=== PATIENT | female | born 1990 | race Caucasian/White ===

== ENCOUNTER → 2021-01-14 14:07 | Outpatient (CLI) | payer OTHER, MEDICAID, SELFPAY ==
--- NOTE | 2021-01-14 14:09 | DI.US.S_ITS ---
PROCEDURE: US OB >= 14 WEEKS FETUS INDICATIONS: 20wk Anatomy Scan OUTSIDE/PRIOR DATING DATA: First dating scan (date and location): 01/14/2021. Estimated date of delivery (RAISA) from first dating scan: 05/14/2021. The calculations are made using the ultrasound RAISA of 05/14/2021. TECHNIQUE: Real-time scanning was performed of the fetus, with image documentation and biometric measurements. Endovaginal scanning: No COMPARISON: [facility], US, US OB < 14 WEEKS, 09/30/2020, 16:25. FINDINGS: General: A single living intrauterine gestation is present. Presentation: Vertex. Placenta: Placental position is posterior , without previa. Amniotic fluid index: 12.7 cm, normal range is 5-24 cm. heart rate: 144 beats per minute. Maternal cervical canal: 3.2 cm long. Normal lower limit is 2.5 cm. biometrics: Biparietal diameter: 23 weeks 0 days Head circumference: 22 weeks 5 days Abdominal circumference: 22 weeks 1 day Femur length: 23 weeks 2 days Clinically estimated gestational age: N/a Composite gestational age from present scan: 22 weeks 6 days Estimated weight and percentile: N/a Anatomic survey: Neuro: Ventricles are non-dilated at less than 10 mm. Cisterna magna is normal at 3-11 mm. Cerebellum is normal in size and morphology. Nuchal skin fold: Normal at less than 6 mm between 14-21 weeks gestational age. Face: Suboptimally seen. Spine: No evidence for spina bifida. Heart: Suboptimally seen. Diaphragm: Diaphragm is intact. Stomach: Left-sided stomach is present. Kidneys: No hydronephrosis. Normal is less than 5 mm in 2nd trimester, less than 7 mm in 3rd trimester. Cord: Not well seen. Bladder: Normal in size. Extremities: All 4 extremities identified. IMPRESSION: 1. 22 week 6 day single living IUP corresponding to ultrasound RAISA of 05/14/2021. 2. Limited anatomic survey as above. Follow-up recommended. We strive to produce accurate, complete, and clear reports of imaging services. To assist us in improving patient care, this report was composed using standard report templates and voice recognition software. Therefore, it may contain abnormal punctuation, insertions and/or omissions. Occasional wrong-word or sound-alike substitutions may occur. Though we review the report and make efforts to correct it, we do recommend that the report be read carefully in proper context to recognize any text inaccuracies. Dictated by: Landen RYDER Interpreted: Anton Moon MD on 01/14/2021 at 16:16 Transcribed by: MAX on 01/14/2021 at 16:19 Approved by: Ivana Stout M.D. on 01/20/2021 at 14:39
== END ==
PROVIDERS: Referring Provider Obstetrics & Gynecology; Visit Provider Obstetrics & Gynecology
DX: Z34.82 Encounter for supervision of other normal pregnancy, second trimester (principal); Z3A.22 22 weeks gestation of pregnancy
CPT/HCPCS: 76811

== ENCOUNTER → 2021-02-12 07:50 | Outpatient (CLI) | payer OTHER, MEDICAID, SELFPAY ==
[2021-02-12 10:14] LABS: Hematocrit 32.9 % (36-46); Hemoglobin 11.3 g/dL (12.0-16.0)
[2021-02-12 10:15] LABS: GTT (PREG) 1 Hour PP 50gm Dose 124 mg/dL (76-139)
== END ==
PROVIDERS: Referring Provider Obstetrics & Gynecology; Visit Provider Obstetrics & Gynecology
DX: Z34.82 Encounter for supervision of other normal pregnancy, second trimester (principal); Z3A.25 25 weeks gestation of pregnancy
CPT/HCPCS: 36415; 82950; 85014; 85018

== ENCOUNTER → 2021-02-16 07:46 | Outpatient (CLI) | payer OTHER, MEDICAID, SELFPAY ==
--- NOTE | 2021-02-16 07:47 | DI.US.S_ITS ---
PROCEDURE: US OB FOLLOW UP INDICATIONS: FOLLOW UP ANATOMY OUTSIDE/PRIOR DATING DATA: Last menstrual period (LMP): Unknown. LMP-based estimated date of delivery (RAISA): Unknown. First dating scan (date and location): 01/14/2021 Estimated date of delivery (RAISA) from first dating scan: 05/14/2021. The calculations are made using the study generated RAISA of 05/14/2021. TECHNIQUE: Real-time scanning was performed of the fetus, with image documentation. COMPARISON: None. FINDINGS: A single living intrauterine gestation is present. Presentation: Vertex Placenta: Placental position is posterior, without gross previa. Amniotic fluid index: 14.8 cm, normal range is 5-24 cm. Single deepest vertical pocket is 4.8 cm. heart rate: 132 beats per minute. Maternal cervical canal: Not well seen. Estimated gestational age from initial scan: 27 weeks, 4 days. facial profile/lips/orbits are visualized and are within normal limits. Four-chamber heart and left ventricular outflow tract is visualized and is within normal limits. Right ventricular outflow tract is not well seen. cord insertion is visualized and is within normal limits. Placenta cord insertion is not well seen. Bilateral lower extremities are within normal limits. IMPRESSION: 1. Single live intrauterine with fetus in vertex presentation. heart rate is 132 beats per minute. Normal amount of amniotic fluid. 2. facial profile, four-chamber heart, left ventricular outflow tract and cord insertion are visualized and are within normal limits. Bilateral lower extremities are visualized and are within normal limits. 3. Placental cord insertion and right ventricular outflow tracts are not well visualized due to position. Dictated by: Jeremy Au M.D. on 02/16/2021 at 12:02 Approved by: Jeremy Au M.D. on 02/16/2021 at 12:05
== END ==
PROVIDERS: Family Provider Obstetrics & Gynecology; Referring Provider Obstetrics & Gynecology; Visit Provider Obstetrics & Gynecology
DX: Z36.2 Encounter for other antenatal screening follow-up (principal); Z3A.27 27 weeks gestation of pregnancy
CPT/HCPCS: 76816

== ENCOUNTER 2021-02-16 17:53 | Emergency (ER) | payer OTHER, MEDICAID, SELFPAY ==
[2021-02-16 18:28] VITALS: BP 115/60; PULSE 97; RESP 18; TEMP 36.7; O2SAT 98; BMI 39.9
--- NOTE | 2021-02-16 21:32 | PC.NURSE ---
pT 27WKS PREG. NO HX OF PAIN OF THIS TIME. NO HX OF KIDNEY STONES, NO COMPLAINTS. PAIN STARTS IN R FLANK AND RADIATES TO L FLANK AND BILAT LOWER EXTREMITIES
[2021-02-16 21:33] VITALS: BP 136/82; PULSE 91; RESP 20; O2SAT 100
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
[2021-02-16 22:20] LABS: RBC Urine 1-5/HPF (0-5/HPF)
[2021-02-16 22:21] LABS: Bacteria Urine Few (2-10); Culture Indicated Urine Cult Not Indicated; Squamous Epithelial Cell Urine 1-5 /HPF (0-5/HPF); WBC Urine 0-1/HPF (0-5/HPF)
[2021-02-16 22:31] VITALS: BP 122/73; PULSE 90; RESP 16; O2SAT 100
== END 2021-02-16 22:43 | disposition home or self-care (01) ==
PROVIDERS: Emergency Provider Emergency Medicine; Family Provider Obstetrics & Gynecology
DX: O26.892 Other specified pregnancy related conditions, second trimester (principal); M54.50 Low back pain, unspecified; Z3A.27 27 weeks gestation of pregnancy; Z36.2 Encounter for other antenatal screening follow-up
CPT/HCPCS: 76816; 81003; 81015; 99282

== ENCOUNTER 2021-03-10 13:10 | Emergency (ER) | payer OTHER, MEDICAID, SELFPAY ==
[2021-03-10 13:22] VITALS: BP 127/73; PULSE 102; RESP 22; TEMP 36.4; O2SAT 98; BMI 39.1
[2021-03-10 13:51] LABS: COVID19 -Nasal RAPID POSITIVE (Negative)
== END 2021-03-10 14:50 | disposition home or self-care (01) ==
PROVIDERS: Emergency Provider Emergency Medicine; Family Provider Obstetrics & Gynecology
DX: O98.513 Other viral diseases complicating pregnancy, third trimester (principal); U07.1 COVID-19; Z3A.30 30 weeks gestation of pregnancy; O47.03 False labor before 37 completed weeks of gestation, third trimester
CPT/HCPCS: 59025; 87635; 99281; C9803; G0378; G0379

== ENCOUNTER 2021-03-10 14:47 | Observation (INO) | payer OTHER, MEDICAID, SELFPAY ==
[2021-03-10 15:28] VITALS: BP 140/59; PULSE 100; RESP 20; TEMP 36.4
== END 2021-03-10 15:39 | disposition home or self-care (01) ==
PROVIDERS: Admitting Provider Obstetrics & Gynecology; Family Provider Obstetrics & Gynecology; Referring Provider Obstetrics & Gynecology; Visit Provider Obstetrics & Gynecology
DX: O47.03 False labor before 37 completed weeks of gestation, third trimester (principal); O98.513 Other viral diseases complicating pregnancy, third trimester; U07.1 COVID-19; Z3A.30 30 weeks gestation of pregnancy
CPT/HCPCS: 59025; G0378; G0379

== ENCOUNTER → 2021-04-02 15:51 | Outpatient (CLI) | payer OTHER, MEDICAID, SELFPAY ==
--- NOTE | 2021-04-02 15:53 | DI.US.S_ITS ---
PROCEDURE: US OB LIMITED INDICATIONS: F/U ANATOMY SCAN OUTSIDE/PRIOR DATING DATA: Last menstrual period (LMP): Unknown. First dating scan (date): January 14, 2021. Estimated date of delivery (RAISA) from first dating scan: May 14, 2021. TECHNIQUE: Real-time scanning was performed of the fetus, with image documentation. COMPARISON: [facility], OB FOLLOW UP, 02/16/2021, 8:03. FINDINGS: A single living intrauterine gestation is present. Presentation: Cephalic. Placenta: Placental position is posterior, without previa. Amniotic fluid index: 16.8 cm, normal range is 5-24 cm. heart rate: 145 beats per minute. Maternal cervical canal: Not well seen. anatomy: Right outflow tract: Not well seen. Placenta cord insertion: Not well seen. IMPRESSION: Live single intrauterine gestation as detailed above. Dictated by: Anton Moon M.D. on 04/02/2021 at 16:54 Approved by: Anton Moon M.D. on 04/02/2021 at 16:56
== END ==
PROVIDERS: Family Provider Obstetrics & Gynecology; Referring Provider Obstetrics & Gynecology; Visit Provider Obstetrics & Gynecology
DX: Z34.83 Encounter for supervision of other normal pregnancy, third trimester (principal); Z3A.34 34 weeks gestation of pregnancy
CPT/HCPCS: 76815

== ENCOUNTER 2021-04-14 19:26 | Observation (INO) | payer OTHER, MEDICAID, SELFPAY ==
[2021-04-14 21:07] LABS: Appearance Urine UA CLEAR; Bilirubin Urine UA NEGATIVE (NEGATIVE); Color Urine UA YELLOW; Glucose Urine UA NEGATIVE (Negative); Ketones Urine UA 3+ (NEGATIVE); Leukocyte Esterase Urine UA NEGATIVE (NEGATIVE); Nitrite Urine UA NEGATIVE (Negative); Occult Blood Urine UA TRACE-LYSED (Negative); Protein Urine UA NEGATIVE (Negative); Urobilinogen Urine UA 0.2 E.U./dL (0.2)
[2021-04-14 21:27] LABS: Bacteria Urine Occasional (0-1); Culture Indicated Urine Cult Not Indicated; RBC Urine 0-1/HPF (0-5/HPF); Squamous Epithelial Cell Urine 10-30 /HPF (0-5/HPF); WBC Urine 0-1/HPF (0-5/HPF)
[2021-04-14] MEDS: NIFEdipine 10 MG CAPSULE PO ×2 (21:44→22:07)
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
== END 2021-04-14 22:45 | disposition home or self-care (01) ==
LOC: LABOR 19:29
PROVIDERS: Admitting Provider Specialist; Family Provider Obstetrics & Gynecology; Referring Provider Specialist; Visit Provider Specialist
DX: O47.03 False labor before 37 completed weeks of gestation, third trimester (principal); Z3A.35 35 weeks gestation of pregnancy
CPT/HCPCS: 59025; 59050; 81001; G0378; G0379

== ENCOUNTER → 2021-04-22 08:07 | Outpatient (CLI) | payer OTHER, MEDICAID, SELFPAY ==
[2021-04-23 14:55] LABS: Strep Grp B PCR NEG for Grp B Strep
== END ==
PROVIDERS: Family Provider Obstetrics & Gynecology; Visit Provider Obstetrics & Gynecology
DX: Z34.83 Encounter for supervision of other normal pregnancy, third trimester (principal); Z3A.36 36 weeks gestation of pregnancy
CPT/HCPCS: 87653

== ENCOUNTER 2021-05-20 08:36 | Outpatient (CLI) | payer OTHER, MEDICAID, SELFPAY | END 2021-05-20 09:14 | disposition home or self-care (01) | LOC: OB 05-21 06:56 | PROVIDERS: Family Provider Obstetrics & Gynecology; PCP Family Medicine; Referring Provider Obstetrics & Gynecology; Visit Provider Obstetrics & Gynecology | DX: O48.0 Post-term pregnancy (principal); O36.8130 Decreased fetal movements, third trimester, not applicable or unspecified; Z3A.40 40 weeks gestation of pregnancy | CPT/HCPCS: 59025; G0378; G0379 ==

== ENCOUNTER 2021-05-21 20:02 | Inpatient (IN) | payer OTHER, MEDICAID, SELFPAY ==
[2021-05-21 21:17] VITALS: BP 127/77
[2021-05-21 21:53] LABS: Add Manual Diff / Slide Review NO; Basophils Absolute Auto 0 /uL (0-100); Basophils Percent Auto 0.4 % (0-2); Eosinophils Absolute Auto 100 /uL (0-450); Eosinophils Percent Auto 0.4 % (2-4); Hematocrit 33.7 % (36-46); Hemoglobin 11.4 g/dL (12.0-16.0); Lymphocytes Absolute Auto 1600 /uL (1100-4500); Lymphocytes Percent Auto 12.8 % (25-40); Mean Corpuscular HGB Conc 33.8 % (30-36); Mean Corpuscular Hemoglobin 27.9 PG (26-34); Mean Corpuscular Volume 82.4 fL (80-100); Monocytes Absolute Auto 1100 /uL (0-900); Monocytes Percent Auto 9.1 % (3-14); Neutrophils Absolute Auto 9800 /uL (1500-7000); Neutrophils Percent Auto 77.3 % (50-75); Platelet Count 272 X10^3/uL (150-400); Red Blood Cell Count 4.09 X10^6/uL (4.0-5.2); Red Cell Distribution Width 13.6 % (11.6-14.8); White Blood Cell Count 12.6 X10^3/uL (4.5-11.0)
[2021-05-21 22:14] LABS: COVID19 -Nasal RAPID Negative (Negative)
[2021-05-21] MEDS: miSOPROStoL 25 MCG TABLET 50 MCG PO (22:22)
[2021-05-22] MEDS: LACTATED RINGERS 1,000 ML 100 ML IV ×2 (09:59→14:04)
[2021-05-22] MEDS: OXYTOCIN PREMIX 30 UNIT/500 ML PLAST..BAG IV (10:04)
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
[2021-05-22] MEDS: fentaNYL 100 MCG/2 ML INJ 50 MCG IV (14:00)
[2021-05-22] MEDS: FENT 2MCG/ML BUPIV 0.125% EPI 200 MCG/100 ML PLAST..BAG 12 MCG EPIDURAL (14:01)
--- NOTE | 2021-05-22 14:30 | PM.AN.REGBLK ---
Regional Block Pre-procedure Procedure: Continuous Lumbar Epidural for L&D Attending OB provider: Slick Velasquez PMH/ROS narrative: , previous epidurals without incident. PMHx of anxiety and obesity. Hx: No personal or family history of anesthesia problems. PSH/Anesthesia history narrative: epidurals without issue Exam narrative: RRR, CTAB ASA Class: III Labs: Hct 33.7 % (36-46) L 05/21/21 21:30 Plt Count 272 X10^3/uL (150-400) 05/21/21 21:30 Medications: Current Medications Generic Name Dose Route Start Last Admin Trade Name Freq PRN Reason Stop Dose Admin Acetaminophen 650 mg 05/21/21 22:17 Acetaminophen 325 Mg Tablet PO Q6HR PRN Fever/Mild Pain (1-3) Calcium Carbonate 1,000 mg 05/21/21 22:17 Calcium Carbonate 500 Mg Tab PO Q4HR PRN Dyspepsia Carboprost Tromethamine 250 mcg 05/21/21 20:11 Carboprost 250 Mcg/Ml Ampul IM Q90M PRN Bleeding Fentanyl 50 mcg 05/21/21 20:11 05/22/21 14:00 Fentanyl 100 Mcg/2 Ml Inj IV 50 mcg Q1H PRN Administration Pain, Moderate (4-6) Lactated Ringer's 1,000 mls @ 100 mls/hr 05/21/21 20:15 05/22/21 14:04 Lactated Ringers IV 100 mls/hr CONT MARY LOU Administration Tranexamic Acid 1,000 mg/ 100 mls @ 200 mls/hr 05/21/21 20:11 Sodium Chloride IV NOW PRN Bleeding Oxytocin/Lactated Ringer's 30 unit in 500 mls @ 200 mls/hr 05/21/21 20:11 Oxytocin Premix IV CONT PRN Bleeding Protocol Oxytocin/Lactated Ringer's 30 unit in 500 mls @ 3 mls/hr 05/22/21 10:00 05/22/21 10:04 Oxytocin Premix IV 3 milliunit/min TITRATE MARY LOU 3 mls/hr Administration Protocol 3 MILLIUNIT/MIN Lactated Ringer's 1,000 mls @ 100 mls/hr 05/22/21 13:45 Lactated Ringers IV CONT MARY LOU FENT 2MCG/ML BUPIV 0.125% EPI 200 mcg in 100 mls @ 12 mls/hr 05/22/21 13:45 05/22/21 14:01 Fentanyl/Bupiv/Ns 2mcg/Ml - 0.125% EPIDURAL 12 mls/hr CONT MARY LOU Administration Methylergonovine Maleate 0.2 mg 05/21/21 20:11 Methylergonovine 0.2 Mg Tablet PO Q6HR PRN Heavy Bleeding Methylergonovine Maleate 0.2 mg 05/21/21 20:11 Methylergonovine 0.2 Mg/Ml Vial IM NOW PRN Bleeding Misoprostol 50 mcg 05/21/21 20:15 05/21/21 22:22 Misoprostol 25 Mcg Tablet PO 50 mcg Q6H MARY LOU Administration Misoprostol 800 mcg 05/21/21 20:11 Misoprostol 200 Mcg Tablet KS NOW PRN Bleeding Misoprostol 1,000 mcg 05/21/21 20:11 Misoprostol 200 Mcg Tablet KS NOW PRN Bleeding Misoprostol 400 mcg 05/21/21 20:11 Misoprostol 200 Mcg Tablet SL NOW PRN Bleeding Naloxone HCl 0.2 mg 05/21/21 20:11 Naloxone 0.4 Mg/Ml Vial IV Q2MIN PRN Opiate Reversal Oxytocin 10 unit 05/21/21 20:11 Oxytocin 10 Unit/Ml Vial IM NOW PRN Bleeding Zolpidem Tartrate 5 mg 05/21/21 22:17 Zolpidem 5 Mg Tablet PO BEDTIME PRN Sleep Allergies: Allergies Allergy/AdvReac Type Severity Reaction Status Date / Time No Known Drug Allergies Allergy Verified 05/20/21 07:59 Procedure Insertion date: 05/22/21 Insertion time: 14:09 Prep/Local: betadine x3 (chloroprep) and 1% lidocaine Interspace: L2-3 Patient position: sitting Needle: 18 gauge Suleman (with 27G pencil point needle-through needle for IT dose) Loss of resistance with: saline (with air bubble) JANA at (cm): 7 Catheter placed at SKIN (cm): 12 Catheter in SPACE (cm): 5 Insertion: Yes CSF, No Blood, No Paresthesia with insertion, No Paresthesia with injection and No Test dose reaction Initial Medications TEST DOSE time: 14:09 TEST DOSE: 1.5% lidocaine with epinephrine 1:200k (mL): 5 (3mL initial test dose, 2mL as part of first bolus) BOLUS DOSE time: 14:10 BOLUS DOSE (mL): 2 BOLUS DOSE med: other (10mcg fentanyl intrathecally, 90mcg fentanyl via epidural catheter) Infusion INFUSION: 0.0625% bupivacaine and with fentanyl 2 mcg/mL Initial rate (mL/hr): 12 (with bolus of 5mL Q15min lockout) Post-procedure Anesthesia time START: 13:55 Anesthesia time END: 16:01 Post-procedure Anesthesia Assessment: No Anesthesia complications
[2021-05-22] MEDS: IBUPROFEN 600 MG TABLET PO (18:20)
[2021-05-23] MEDS: IBUPROFEN 600 MG TABLET PO ×2 (00:07→06:03)
[2021-05-23 06:16] LABS: Hematocrit 30.5 % (36-46); Hemoglobin 10.4 g/dL (12.0-16.0)
[2021-05-23] MEDS: DOCUSATE 100 MG CAPSULE PO (09:44)
[2021-05-23] MEDS: CITALOPRAM 10 MG TABLET 20 MG PO (09:44)
--- NOTE | 2021-05-23 11:08 | PM.OBPRVD ---
Labor & Delivery Delivery date: 05/22/21 Intrapartal Events: None Cervical ripening method: per misoprostal protocol Induction method: per pitocin protocol Delivery monitor: external FHT and external uterine Route of delivery: Episiotomy description: None L&D Laceration Description: Perineal - 1st Degree Estimated blood loss (mL): 150 Anesthesia Type: Epidural Complications: None. Narrative: Following Cytotec ripening and Pitocin induction, following AROM patient entered brief 2nd stage and delivered spontaneously a viable female infant Apgars of 7 and 9 with a weight of 4052 g (8 lb 14.9 oz) over an intact perineum. Skin to skin contact was initiated immediately and cord clamping was delayed for greater than 60 seconds. Once clamped and cut, cord blood sample was obtained for routine testing. The placenta was allowed to drain and subsequently delivered with gentle cord traction and intact placenta with central insertion. Upon inspection, a very small superficial first-degree perineal abrasion was noted which did not require repair. Sponge and needle counts were correct both before and after the procedure. Mother and baby both tolerated delivery well. Estimated blood loss 150 cc. Complications experienced none.
--- NOTE | 2021-05-23 11:21 | P.DS_ITS ---
Discharge Providers Provider Date of admission: 05/21/21 20:02 Discharge Date: 05/23/21 Primary care physician: Sebas Gan MD Consults: 05/23/21 16:23 Consult to [employer] Se[employer] Routine Comment: Discharge provider: Slick Velasquez MD Summary Hospital Course Date Patient Seen: 05/23/21 Time Patient Seen: 11:21 Diagnoses: Intrauterine gestation, Mckeon, 40+ 5 weeks gestational age, delivered Hospital Course: Delaney was admitted to the [facility] center on the evening of 05/21/2021 and received Cytotec orally x1 dose. On the morning of 05/22/2021 patient received IV Pitocin or induction and on the afternoon of 05/22/2021 delivered a viable female with Apgars of 7/9 and a weight of 8 lb 14.9 oz. Following delivery both mother and baby have done well with no issues noted. They will be discharged to home with the mother's follow-up scheduled for 6 weeks. At that time patient desires to have insertion of a Mirena IUD. Patient will use OTC Tylenol and ibuprofen as needed for discomfort following delivery. Prior to delivery she was counseled regarding precautionary symptoms, limitations of activity, medications, and plans for follow-up. Peripartum Data Infant Delivery Method: Natural Vaginal Laceration Description: Perineal - 1st Degree Episiotomy description: None complications: none Disputanta 1: Gender: Female Disposition of : home Time Spent with Patient Time attestation: Total time spent providing and/or coordinating discharge services: Time spent: Less than 30 minutes Objective Labs Result Diagrams: 05/23/21 06:05 Labs: Laboratory Results - last 24 hr 05/23/21 06:05 Hgb 10.4 L Hct 30.5 L Exam Const General: cooperative, healthy appearing and comfortable Nutritional Appearance: average body habitus Orientation: alert and oriented x3 HENMT Head: normal to inspection Eyes General: appearance normal, both eyes and all related structures Neck Neck: normal visual inspection Resp Effort & Inspection: normal respiratory effort and able to speak in complete sentences General: other (Deferred) Psych Appearance: grossly normal Mental Status: mental status grossly normal Speech and Movement: speech and movement normal Mood: congruent mood Affect: normal affect Attitude: cooperative Thought Process: normal Thought Content: normal Judgment: judgment good Discharge Plan Discharge Plan Provider Discharge Comment: Please review the instructions you received when you were released from the hospital. Your follow-up appointment will be scheduled for 6 weeks and I look forward to seeing you then. If in the meanwhile however you have any issues, concerns, or problems, please feel free to contact me through either the office phone or the patient portal message system. Discharge orders & Medications Discharge Orders: Discharge (Order); Ordered 05/23/21 Ordered By: Slick Velasquez Prescriptions: No Action citalopram 40 mg tablet 20 mg PO DAILY 0RF prenat.vits,cain,[id number]-srttj Tablet 1 tab PO DAILY 0RF calcium carbonate 600 mg calcium (1,500 mg) tablet 600 mg PO DAILY 0RF cholecalciferol (vitamin D3) 25 mcg (1,000 unit) capsule 20 mcg PO DAILY 0RF Follow up/Referrals: Sebas Gan MD [Primary Care Provider] - Discharge Health Status Multidrug resistant organism: No MDRO Diet/Activity/Treatments Diet: Diet as Tolerated Activity: As tolerated. Other treatments: [id number] Tylenol and/or ibuprofen for post delivery discomforts. Skin/Wound/Dressing Care Report to your healthcare provider any signs of infection, such as:: chills, fever, increased pain, unusual drainage and unusual redness Visit Report/Discharge Packet Instructions: DI for Labor and Delivery, Vaginal , DI for and Nipple Soreness Discharge Data Primary Care Provider: Sebas Gan
[2021-05-23 11:57] VITALS: BP 112/68; PULSE 78; RESP 16; TEMP 36.9
== END 2021-05-23 12:44 | disposition home or self-care (01) | DRG 560 ==
PROVIDERS: Admitting Provider Obstetrics & Gynecology; Family Provider Obstetrics & Gynecology; PCP Family Medicine; Referring Provider Obstetrics & Gynecology; Visit Provider Obstetrics & Gynecology
DX: O48.0 Post-term pregnancy (principal); O36.8130 Decreased fetal movements, third trimester, not applicable or unspecified; Z3A.40 40 weeks gestation of pregnancy; O70.0 First degree perineal laceration during delivery; Z37.0 Single live birth; Z20.822 Contact with and (suspected) exposure to COVID-19
CPT/HCPCS: 01967; 36415; 59025; 59050; 59200; 59409; 85014; 85018; 85025; 86850; 86900; 86901; 87635; C9803; G0379; J2590; J3010

== ENCOUNTER 2022-04-03 17:34 | Emergency (ER) | payer OTHER, SELFPAY ==
[2022-04-03 17:42] VITALS: BP 123/73; PULSE 75; RESP 18; TEMP 37.1; O2SAT 100; BMI 41.1
--- NOTE | 2022-04-03 17:49 | DI.RAD.S_ITS ---
PROCEDURE: XR FOOT LT MIN 3V INDICATIONS: rolled right ankle, felt pop, pain in right foot also TECHNIQUE: 3 views of the foot were acquired. COMPARISON: [facility], CR, XR ANKLE LT MIN 3V, 04/03/2022, 17:51. FINDINGS: Bones: No fractures or dislocations. No 5th metatarsal fracture can be seen. No suspicious bony lesions. A plantar calcaneal spur is seen. Soft tissues: No tibiotalar joint effusion. Achilles tendon appears normal. IMPRESSION: Foot plain film study within normal limits. Dictated by: Tulio Velazquez M.D. on 04/03/2022 at 17:24 Approved by: Tulio Velazquez M.D. on 04/03/2022 at 17:25
--- NOTE | 2022-04-03 17:49 | DI.RAD.S_ITS ---
PROCEDURE: XR ANKLE LT MIN 3V INDICATIONS: rolled right ankle, felt pop, pain in right foot also TECHNIQUE: 3 views of the ankle were acquired. COMPARISON: [facility], , XR FOOT LT MIN 3V, 04/03/2022, 17:51. FINDINGS: Bones: No fractures or dislocations. Ankle mortise is normally aligned. No suspicious bony lesions. The talar dome demonstrates no jose guadalupe abnormality. A plantar calcaneal spur is seen. Soft tissues: No tibiotalar joint effusion. Achilles tendon appears normal. IMPRESSION: No significant plain film abnormality is seen. If it would be helpful for clinical management decision making, please consider a dedicated, scheduled ankle MRI for further evaluation (assuming that there is no contraindication). Dictated by: Tulio Velazquez M.D. on 04/03/2022 at 17:23 Approved by: Tulio Velazquez M.D. on 04/03/2022 at 17:24
[2022-04-03] MEDS: KETOROLAC 30 MG/ML VIAL IM (18:06)
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
[2022-04-03] MEDS: HYDROCODONE/ACET 5/325 TABLET 1 TAB PO (19:15)
[2022-04-03] MEDS: ONDANSETRON 4 MG ODT SL (19:16)
== END 2022-04-03 21:13 | disposition home or self-care (01) ==
PROVIDERS: Emergency Provider Student in an Organized Health Care Education/Training Program; Family Provider Obstetrics & Gynecology; PCP Family Medicine
DX: S93.402A Sprain of unspecified ligament of left ankle, initial encounter (principal); S93.602A Unspecified sprain of left foot, initial encounter; W01.0XXA Fall on same level from slipping, tripping and stumbling without subsequent striking against object, initial encounter
CPT/HCPCS: 73610; 73630; 96372; 99283; 99284; J1885

== ENCOUNTER → 2022-06-03 15:44 | Outpatient (CLI) | payer OTHER, SELFPAY ==
--- NOTE | 2022-06-03 15:44 | DI.RAD.S_ITS ---
PROCEDURE: XR KNEE RT 3V INDICATIONS: Right knee strain TECHNIQUE: 3 views of the knee were acquired. COMPARISON: None. FINDINGS: Bones: No fractures or dislocations. No suspicious bony lesions. Soft tissues: No joint effusion. No suspicious soft tissue calcifications. IMPRESSION: No evidence acute bony abnormality of the right knee. If clinical suspicion and/or symptoms persist, further assessment with repeat plain films, or advanced imaging (e.g., CT, MRI, or bone scan) may be helpful for further assessment. Dictated by: Christian Kruger M.D. on 06/03/2022 at 17:53 Approved by: Christian Kruger M.D. on 06/03/2022 at 17:53
== END ==
PROVIDERS: Family Provider Obstetrics & Gynecology; PCP Family Medicine; Referring Provider Nurse Practitioner Family; Visit Provider Nurse Practitioner Family
DX: S86.911A Strain of unspecified muscle(s) and tendon(s) at lower leg level, right leg, initial encounter (principal); X58.XXXA Exposure to other specified factors, initial encounter
CPT/HCPCS: 73562

== ENCOUNTER → 2022-06-11 16:57 | Outpatient (CLI) | payer OTHER, SELFPAY ==
--- NOTE | 2022-06-11 16:58 | DI.MRI.S_ITS ---
PROCEDURE: MRFOOT LT WO CON INDICATIONS: Pain x 2-3 month TECHNIQUE: Noncontrast sagittal T1 spin echo and T2 fast spin echo with fat saturation, long-axis T1 spin echo and T2 fast spin echo with fat saturation, short-axis T1 spin echo and T2 fast spin echo with fat saturation through the forefoot. COMPARISON: [facility], CR, XR FOOT LT MIN 3V, 04/03/2022, 17:51. FINDINGS: Image quality: Excellent. Bones and joints: There is significant marrow edema involving 2nd through 4th metatarsal bases and proximal to mid 2nd and 3rd metatarsal shafts. Significant marrow edema involving the cuneiform is and cuboid is also seen. Subtle linear hypointense signal within 2nd through 4th metatarsal bases are seen. No cortical disruption is noted. No other area of abnormal marrow signal. Soft tissues: The visualized plantar foot muscles demonstrate normal signal and bulk. Visualized flexor and extensor tendons appear intact, without tenosynovitis. The distal insertions of the peroneus brevis and longus tendons appear intact. The principal Lisfranc ligament appears intact. No soft tissue ganglion cysts or bursal fluid collections. Sagittal images demonstrate no evidence for plantar plate tears. IMPRESSION: 1. Finding is concerning for subtle stress fractures involving 2nd through 4th metatarsal bases with contusion versus stress related changes involving cuneiform is and cuboid. No cortical disruption is seen. No other fracture or dislocation. 2. Tendons and ligaments are in midfoot and forefoot are grossly intact. Dictated by: Jeremy Au M.D. on 06/14/2022 at 8:09 Approved by: Jeremy Au M.D. on 06/14/2022 at 8:20
== END ==
PROVIDERS: Family Provider Obstetrics & Gynecology; PCP Family Medicine; Referring Provider Family Medicine; Visit Provider Family Medicine
DX: M79.672 Pain in left foot (principal)
CPT/HCPCS: 73718

== ENCOUNTER → 2022-06-19 08:07 | Outpatient (CLI) | payer OTHER, SELFPAY ==
[2022-06-19 09:11] LABS: BUN Creatinine Ratio 16.7 (6-22); Blood Urea Nitrogen 10 mg/dL (7-17); Calcium 8.4 mg/dL (8.4-10.2); Carbon Dioxide 23 mmol/L (22-32); Chloride 104 mmol/L (98-107); Estimated Glomerular Filt Rate > 60 mL/min (>60); Glucose 100 mg/dL (70-100); HEMOLYSIS < 15 (0-50); Potassium 4.1 mmol/L (3.4-5.1); Sodium 137 mmol/L (137-145)
[2022-06-19 09:20] LABS: Vitamin D 25 Hydroxy (D3) 13.2 ng/mL (30.0-100.0)
== END ==
PROVIDERS: Family Provider Obstetrics & Gynecology; PCP Family Medicine; Referring Provider Physician Assistant; Visit Provider Physician Assistant
DX: E55.9 Vitamin D deficiency, unspecified (principal); M79.672 Pain in left foot; M84.375A Stress fracture, left foot, initial encounter for fracture
CPT/HCPCS: 36415; 80048; 82306

== ENCOUNTER → 2022-08-18 10:14 | Outpatient (CLI) | payer OTHER, SELFPAY ==
[2022-08-18 12:01] LABS: Vitamin D 25 Hydroxy (D3) 53.9 ng/mL (30.0-100.0)
== END ==
PROVIDERS: Family Provider Obstetrics & Gynecology; PCP Family Medicine; Referring Provider Orthopaedic Surgery Foot and Ankle Surgery; Visit Provider Orthopaedic Surgery Foot and Ankle Surgery
DX: M84.375A Stress fracture, left foot, initial encounter for fracture (principal); E55.9 Vitamin D deficiency, unspecified
CPT/HCPCS: 36415; 82306